=== PATIENT | male | born 1975 | race Caucasian/White ===

== ENCOUNTER → 2024-08-10 10:20 | Outpatient (REF) | payer OTHER, SELFPAY ==
[2024-08-10 12:26] LABS: HDL Cholesterol 56 mg/dl; LDL Cholesterol, Calculated 193 mg/dl; Total Cholesterol 273 mg/dl (50-199); Triglyceride 122 mg/dl (10-149); Very Low Density Lipoprotein 24 mg/dl (0-30)
[2024-08-10 12:54] LABS: Glycohemoglobin (HgbA1c) 5.6 % (4.0-5.6)
== END ==
LOC: REG 10:20
PROVIDERS: FAMILY PHYSICIAN Family Medicine
DX: Z79.899 Other long term (current) drug therapy (principal)
CPT/HCPCS: 36415; 80061; 83036

== ENCOUNTER → 2025-02-06 09:42 | Outpatient (REF) | payer BC, SELFPAY | LOC: HWRAD 09:42 | PROVIDERS: ATTENDING PHYSICIAN Family Medicine | DX: R32 Unspecified urinary incontinence (principal); R35.0 Frequency of micturition | CPT/HCPCS: 76770 ==

== ENCOUNTER 2025-02-20 06:20 | Day surgery (SDC) | payer BC, SELFPAY | END 2025-02-20 09:32 | disposition home or self-care (01) | LOC: GI 06:20 | PROVIDERS: ATTENDING PHYSICIAN Internal Medicine Gastroenterology | DX: Z12.11 Encounter for screening for malignant neoplasm of colon (principal); K64.8 Other hemorrhoids; K62.1 Rectal polyp; D18.1 Lymphangioma, any site | CPT/HCPCS: 45385; 45380; 88305 ==